=== PATIENT | male | born 1995 ===

== ENCOUNTER 2016-08-27 16:38 | Emergency (ER) | payer SELFPAY ==
[2016-08-27] VITALS (16 sets, daily range): BP systolic 97–134; BP diastolic 63–88
[~2016-08-27] VITALS: Ht 180.3 cm; Wt 68.0 kg
[2016-08-27] MEDS ORDERED: Naloxone 1mg/ml 2ml IVP ONE (16:45)
--- NOTE | 2016-08-27 17:29 | Emergency Room Report ---
History of Present Illness General Chief Complaint: Overdose Source: Patient (Christopher Bartholomew M.D.) Present Illness HPI The patient was brought in by EMS. Were called to the hot where his persisting. The call was for decreased level of consciousness. Apparently found bottles of GHB from the patient. They state that the patient's pupils were dilated at that time. They started him on oxygen because he was spitting. They say that he was responsive to pain only. Her Dwayne Coma Scale was 8. The [place] Accu-Chek was in the 130s. No Narcan was given. No other history is available. (Christopher Bartholomew M.D.) Allergies: Coded Allergies: UNABLE TO ASSESS (Unverified , 08/27/16) Patient History Limited by: medical condition Social History: Reports: drug use Social History [facility] Review[facility] Nursing Documentation: PMH: Agreed, PSxH: Agreed (Christopher Bartholomew M.D.) Nursing Documentation-PMH Past Medical History: No Stated History (Christopher Bartholomew M.D.) Review of Systems All Other Systems: limited (Christopher Bartholomew M.D.) Physical Exam Vital Signs Date Time Temp Pulse Resp B/P Pulse Ox O2 Delivery O2 Flow Rate FiO2 08/27/16 16:34 130 22 108/68 99 Sp02 EP Interpretation: reviewed, normal General Appearance: Stupor Eyes: bilateral eye PERRL - 3 mm, bilateral eye Scleral Injection ENT: moist mucus membranes Neck: other - flaccid Respiratory: chest non-tender, other - decreased TV, but adequate oxygenation Cardiovascular #1: tachycardia Gastrointestinal: abnormal bowel sounds - decreased, scaphoid Genitourinary: normal inspection Musculoskeletal: digits/nails normal, non-tender Neurologic: other - + gag - moves all 4, stupor, min response to pain Psychiatric: other - stupor Reflexes: 2+ knee (R), 2+ knee (L) Skin: other - tattoos (Christopher Bartholomew M.D.) Medical Decision Making Diagnostic Impression: Primary Impression: Substance abuse Additional Impressions: Drug overdose Qualified Codes: T50.901A - Poisoning by unspecified drugs, medicaments and biological substances, accidental (unintentional), initial encounter Pneumonia Qualified Codes: J18.9 - Pneumonia, unspecified organism Elevated lactic acid level ER Course Patient with stupor with alleged GHB ingestion. DDx: bleed, polysubstance abuse , electrolyte abnormality. Emergent need for evaluation and observation with labs, CT, EKG, CXR. IV hydration and cardiac monitoring. Patient protecting airway, no need for intubation. The patient did not respond to Narcan. Unable to perform CT due to movement. Initially ordered ativan for sedation, then reconsidered to observe patient and re-evaluate as no evidence of head trauma. Lactate elevated and high hgb. Needs hydration. Needs restraints. Tox + amphetamine. Patient more awake. Able to give name. Patient febrile. Also c/o cough. Re-evaluation of xray - consider L infiltrate. Antibiotics ordered, tylenol and continued IV hydration. Discussed findings with patient. He understands. Repeating lactic acid. 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 Also discussed that if worsening - needs to return for possible hospitalization. No indication for acute hospitalization as O2 sat 100% and fully oriented without SI or HI. Patient signed out to Dr. Montalvo for repeat lactic acid and re-evaluation. Laboratory Tests Test 08/27/16 16:49 08/27/16 18:05 White Blood Count 6.2 K/UL (4.8-10.8) Red Blood Count 5.59 M/UL (4.70-6.10) Hemoglobin 17.5 G/DL (14.2-18.0) Hematocrit 52.5 % (42.0-52.0) H Mean Corpuscular Volume 94 FL (80-99) Mean Corpuscular Hemoglobin 31.3 PG (27.0-31.0) H Mean Corpuscular Hemoglobin Concent 33.4 G/DL (32.0-36.0) Red Cell Distribution Width 11.4 % (11.6-14.8) L Platelet Count 154 K/UL (150-450) Mean Platelet Volume 8.5 FL (6.5-10.1) Neutrophils (%) (Auto) 82.6 % (45.0-75.0) H Lymphocytes (%) (Auto) 8.6 % (20.0-45.0) L Monocytes (%) (Auto) 8.0 % (1.0-10.0) Eosinophils (%) (Auto) 0.1 % (0.0-3.0) Basophils (%) (Auto) 0.7 % (0.0-2.0) Sodium Level 145 mEQ/L (135-145) Potassium Level 4.5 mEQ/L (3.4-4.9) Chloride Level 102 mEQ/L (98-107) Carbon Dioxide Level 20 mEQ/L (20-30) Anion Gap 23 (5-15) H Blood Urea Nitrogen 11 mg/dL (7-23) Creatinine 1.5 mg/dL (0.7-1.2) H Estimate Glomerular Filtration Rate 56.1 mL/min (>60) Glucose Level 122 mg/dL (74-106) H Lactic Acid Level 2.80 mmol/L (0.66-2.22) H Calcium Level 9.6 mg/dL (8.6-10.2) Total Bilirubin 1.0 mg/dL (0.0-1.2) Aspartate Amino Transferase (AST) 23 U/L (5-40) Alanine Aminotransferase (ALT) 16 U/L (3-41) Alkaline Phosphatase 84 U/L (40-129) Total Creatine Kinase 135 U/L (38-174) Troponin I < 0.30 ng/mL (<=0.30) Total Protein 8.1 g/dL (6.6-8.7) Albumin 5.0 g/dL (3.5-5.2) Globulin 3.1 g/dL Albumin/Globulin Ratio 1.6 (1.0-2.7) Salicylates Level < 1 mg/dL (10-30) L Acetaminophen Level < 10 ug/mL (10-30) L Serum Alcohol < 10 mg/dL Urine Color Pale yellow Urine Appearance Clear Urine pH 5 (4.5-8.0) Urine Specific [place] 1.015 (1.005-1.035) Urine Protein Negative (NEGATIVE) Urine Glucose (UA) Negative (NEGATIVE) Urine Ketones 1+ (NEGATIVE) H Urine Occult Blood Negative (NEGATIVE) Urine Nitrite Negative (NEGATIVE) Urine Bilirubin Negative (NEGATIVE) Urine Urobilinogen Normal MG/DL (0.0-1.0) Urine Leukocyte Esterase Negative (NEGATIVE) Urine Opiates Screen Negative (NEGATIVE) Urine Barbiturates Screen Negative (NEGATIVE) Phencyclidine (PCP) Screen Negative (NEGATIVE) Urine Amphetamines Screen Positive (NEGATIVE) H Urine Benzodiazepines Screen Negative (NEGATIVE) Urine Cocaine Screen Negative (NEGATIVE) Urine Marijuana (THC) Screen Negative (NEGATIVE) (Christopher Bartholomew M.D.) ER Course Patient signed out to me. He present with drug overdose. He is feeling better now. Alert oriented x3. He is competent to make decisions now. He said he went to leave. No criteria for 5150. We'll discharge home. This patient is a chronic risk of self injury due to poor impulse control, limited coping skills, and judgment intermittently impaired by intoxication. I believe that the available clinical evidence to suggest that these characteristics derived primarily from personality disorder and are likely very stable over time. Hospitalization would likely attenuate risk of self-harm only during chcf period, without lasting risk reduction. Serious self-harm , while possible, would likely be inadvertent, and because of impulsivity, and foreseeable. For these reasons, I do not believe hospitalization would provide meaningful reduction in risk of self-harm. (MANOJ MONTALVO M.D.) EKG Diagnostic Results Rate: tachycardiac ST Segments: no acute changes (Christopher Bartholomew M.D.) Rhythm Strip Diag. Results EP Interpretation: yes Rhythm: no PVC's, no ectopy, other - ST (Christopher Bartholomew M.D.) Chest X-Ray Diagnostic Results EP Interpretation: Yes Findings: no effusion, no pneumothorax, no acute cardiopulmonary disease, other - L infiltrate Number of Views: 1 (Christopher Bartholomew M.D.) Status: improved (Christopher Bartholomew M.D.) Status: improved (MANOJ MONTALVO M.D.) Disposition: HOME, SELF-CARE Condition: Stable Scripts Levofloxacin* (LEVAQUIN*) 500 Mg Tablet 500 MG ORAL DAILY, #7 TAB Prov: Christopher Bartholomew M.D. 08/28/16 Christopher Bartholomew M.D. Aug 27, 2016 17:29 MANOJ MONTALVO M.D. Aug 28, 2016 00:35
[2016-08-27 17:34] LABS: BASOPHILS % (AUTO) 0.7 % (0.0-2.0); EOSINOPHILS % (AUTO) 0.1 % (0.0-3.0); LYMPHOCYTES % (AUTO) 8.6 % (20.0-45.0); MEAN CORPUSCULAR HEMOGLOBIN 31.3 PG (27.0-31.0); MEAN CORPUSCULAR HGB CONC 33.4 G/DL (32.0-36.0); MEAN CORPUSCULAR VOLUME 94 FL (80-99); MEAN PLATELET VOLUME 8.5 FL (6.5-10.1); NEUTROPHILS % (AUTO) 82.6 % (45.0-75.0); PLATELET COUNT 154 K/UL (150-450); RED BLOOD COUNT 5.59 M/UL (4.70-6.10); RED CELL DISTRIBUTION WIDTH 11.4 % (11.6-14.8); WHITE BLOOD COUNT 6.2 K/UL (4.8-10.8)
[2016-08-27 17:45] LABS: TROPONIN I < 0.30 ng/mL (<=0.30)
[2016-08-27] MEDS ORDERED: LORazepam Inj 2mg/ml 1ml IV ONE (17:45)
[2016-08-27 17:48] LABS: ACETAMINOPHEN < 10 ug/mL (10-30); ALANINE AMINOTRANSFERASE 16 U/L (3-41); ALBUMIN/GLOBULIN RATIO 1.6 (1.0-2.7); ALCOHOL < 10 mg/dL; ANION GAP 23 (5-15); ASPARTATE AMINO TRANSFERASE 23 U/L (5-40); CALCIUM 9.6 mg/dL (8.6-10.2); CARBON DIOXIDE 20 mEQ/L (20-30); CHLORIDE 102 mEQ/L (98-107); CREATININE 1.5 mg/dL (0.7-1.2); GLOMERULAR FILTRATION RATE 56.1 mL/min (>60); HEMOLYSIS 61; POTASSIUM 4.5 mEQ/L (3.4-4.9); SODIUM 145 mEQ/L (135-145); TOTAL PROTEIN 8.1 g/dL (6.6-8.7)
[2016-08-27 17:49] LABS: REFLEX LACTIC ACID YES OR NO YES
[2016-08-27 18:54] LABS: APPEARANCE,URINE CLEAR; KETONES,URINE 1+ (NEGATIVE); LEUKOCYTE ESTERASE ,URINE NEGATIVE (NEGATIVE); NITRITE,URINE NEGATIVE (NEGATIVE); PH,URINE 5 (4.5-8.0); PROTEIN,URINE NEGATIVE (NEGATIVE); UROBILINOGEN,URINE NORMAL MG/DL (0.0-1.0)
[2016-08-27] MEDS ORDERED: cefTRIAXone 1 GM in NS 55 ML IVPB ONE (23:30)
[2016-08-28] MEDS ORDERED: LEVAQUIN500 MG ORAL (00:09)
[2016-08-28 00:12] VITALS: BP 115/80
[2016-08-28 04:05] VITALS: BP 107/78
[2016-08-28 04:06] VITALS: BP 115/80
--- NOTE | 2016-08-29 08:36 | Diagnostic Imaging Report ---
Clinical history: Chest pain. Technique: Portable AP chest radiograph was obtained. Comparison: None Findings: Ill-defined opacity in the mid and lower left lung is suspicious for left lower lobe pneumonia in the appropriate clinical setting. There is no pleural effusion or pneumothorax. The cardiac and mediastinal silhouettes are normal in appearance. The bony thorax is unremarkable. Impression: Suspected left lower lobe pneumonia. Please correlate with clinical parameters and consider followup chest radiographs in 4-6 weeks after appropriate therapy to ensure improvement or resolution.
== END 2016-08-28 04:06 | disposition home or self-care (01) ==
LOC: EDBD 16:38 → EMR 18:04 → EDBD 18:04 → EMR 08-28 04:06
DX: T41.291A Poisoning by other general anesthetics, accidental (unintentional), initial encounter (principal); Y92.59 Other trade areas as the place of occurrence of the external cause; J18.9 Pneumonia, unspecified organism
CPT/HCPCS: 36415; 71010; 80053; 80300; 81003; 82550; 83605; 84484; 85025; 96360; 96361; 96374; 99284; G0480; J0696; J2310; 80329